=== PATIENT | female | born 1995 | race Caucasian/White ===

== ENCOUNTER 2017-02-23 20:55 | Emergency (ER) | payer BC ==
[~2017-02-23] VITALS: Ht 154.9 cm; Wt 65.0 kg
[2017-02-23 21:03] VITALS: TEMP 37; Ht 154.9 cm; Wt 65.0 kg
--- NOTE | 2017-02-23 21:44 | EMERGENCY ROOM VISIT NOTE ---
History Report prepared by Elva: Jasson Mahmood Under the Supervision of: Dr. Joni Douglas D.O. First contact with patient: 21:37 Chief Complaint: SWELLING TO EXTREMITY Stated Complaint: SWOLLEN LIP History of Present Illness The patient is a 21 year old female who presents to the Emergency Room with complaints of lower lip swelling that began 2 days ago. The patient decided to use salt water to try to relieve the area, but it worsened. She denies any difficulty swallowing or shortness of breath. She does not have any other swelling to any other area. She denies any possibility of being . Source of History: patient Onset: 2 days ago Position: lip (lower) Symptom Intensity: moderate Quality: other (Swelling) Timing: worsening Modifying Factors (Worsening): other (Salt water) Associated Symptoms: No SOB Note: She denies any other symptoms. Review of Systems See HPI for pertinent positives and negatives. A total of ten systems were reviewed and were otherwise negative. Past Medical & Surgical Medical Problems: (1) No Known Active Medical Problems Family History Patient reports no known family medical history. Social History Smoking Status: Never Smoker Smokeless Tobacco Use: No Alcohol Use: none Drug Use: none Marital Status: single Occupation Status: student Physical Exam Vital Signs Date Time Temp Pulse Resp B/P (MAP) Pulse Ox O2 Delivery O2 Flow Rate FiO2 02/23/17 21:03 37.0 90 18 133/78 99 Room Air Physical Exam GENERAL: Awake, alert, well-appearing, in no distress HENT: Normocephalic, atraumatic. Area of swelling to the lower lip on the left side with yellow crusted lesion without any purulence. Oropharynx unremarkable. EYES: Normal conjunctiva. Sclera non-icteric. NECK: Supple. No nuchal rigidity. FROM. No JVD. RESPIRATORY: Clear to auscultation. CARDIAC: Regular rate, normal rhythm. Extremities warm and well perfused. Pulses equal. ABDOMEN: Soft, non-distended. No tenderness to palpation. No rebound or guarding. No masses. MUSCULOSKELETAL: Chest examination reveals no tenderness. The back is symmetrical on inspection without obvious abnormality. There is no CVA tenderness to palpation. No joint edema. LOWER EXTREMITIES: Calves are equal size bilaterally and non-tender. No edema. No discoloration. NEURO: Normal sensorium. No sensory or motor deficits noted. SKIN: No rash or jaundice noted. Medical Decision & Procedures ED Course 2136: The patient was evaluated in room B3B. A complete history and physical exam was performed. 2140: I reevaluated the patient. Discussed results and discharge instructions: She verbalized understanding and agreement. The patient is ready for discharge. Medical Decision Differential diagnoses include herpes stomatitis, viral syndrome, and gingivitis. Medication Reconcilliation Current Medication List: was personally reviewed by me Blood Pressure Screening Patient's blood pressure: Normal blood pressure Blood pressure disposition: Did not require urgent referral Impression Primary Impression: Herpes stomatitis Scribe Attestation The scribe's documentation has been prepared under my direction and personally reviewed by me in its entirety. I confirm that the note above accurately reflects all work, treatment, procedures, and medical decision making performed by me. Departure Information Dispostion Home / Self-Care Prescriptions Acyclovir (Zovirax) 800 Mg Tab 800 MG PO 5 TIMES DAILY for 5 Days, #25 TAB Prov: Joni Douglas, DO 02/23/17 Referrals Lianna Lester D.O. (PCP) Forms HOME CARE DOCUMENTATION FORM, IMPORTANT VISIT INFORMATION, WORK / SCHOOL INSTRUCTIONS Patient Instructions ED Stomatitis Ch, My [facility]
[2017-02-23] MEDS ORDERED: ACYC-251 PO (21:45)
[2017-02-23 22:05] VITALS: BP 118/77; PULSE 67; O2SAT 98
== END 2017-02-23 22:06 | disposition home or self-care (01) ==
LOC: C.EDB 20:56
DX: B00.2 Herpesviral gingivostomatitis and pharyngotonsillitis (principal)

== ENCOUNTER 2017-05-15 02:54 | Inpatient (IN) | payer BC ==
[~2017-05-15] VITALS: Ht 154.9 cm; Wt 62.6 kg
[~2017-05-15 02:54] MED LIST: PRED20TA PO
[2017-05-15] MEDS ORDERED: ONDANSETRON INJ 2 MG/ML 2 ML VIAL IV STA (03:21)
[2017-05-15] MEDS ORDERED: KETOROLAC TROMETHAMINE 30 MG/ML VIAL IV STA (03:21)
[2017-05-15] MEDS ORDERED: OPTIRAY 320 IV PRN (03:30)
[2017-05-15 03:46] LABS: BASO % 0.1 %; BASO ABS # 0.01 K/uL (0-0.2); COMPLETE YES; EOS % 0.3 %; HEMATOCRIT 41.4 % (37-47); IG% 0.2 %; LYMPH % 18.1 %; LYMPH ABS # 2.44 K/uL (1.2-3.4); MEAN CELL VOLUME 86.1 fL (80-100); MEAN CORPUSCULAR HEMOGLOBIN 29.7 pg (25-34); MEAN CORPUSCULAR HGB CONC 34.5 g/dl (32-36); MEAN PLATELET VOLUME 9.2 fL (7.4-10.4); NEUT % 74.3 %; PLATELET COUNT 203 K/uL (130-400); RED BLOOD COUNT 4.81 M/uL (4.2-5.4); WHITE BLOOD COUNT 13.51 K/uL (4.8-10.8)
--- NOTE | 2017-05-15 04:09 | EMERGENCY ROOM VISIT NOTE ---
History First contact with patient: 03:03 Chief Complaint: ABDOMINAL PAIN Stated Complaint: SEVERE PAIN IN STOMACH Nursing Triage Summary: Pt c/o right sided abdominal pain that radiated into her back with associated nausea and dry heaves. History of Present Illness The patient is a 21 year old female who presents to the Emergency Room with complaints of abdominal pain. The patient states that she developed a dull pain in her right abdomen approximately 9 hours ago. She states the pain gradually worsened and she was unable to sleep due to the pain. The patient now describes the pain as sharp and rates the discomfort a 7/10. The pain radiates into her back. She reports some dry heaves, but denies vomiting. Her last menstrual period was 14 days ago. She denies any abnormal vaginal discharge, urinary symptoms, fevers or changes in bowel movements. She denies any history of abdominal issues or abdominal surgeries. The patient additionally reports that she was seen by her primary care provider due to a rash on her abdomen yesterday. She was prescribed prednisone and has been taking this since then. Review of Systems A complete 10 point review of systems was reviewed with the patient with pertinent positives and negatives as per history of present illness. All else were negative. Past Medical/Surgical History Medical Problems: (1) Abdominal pain (2) No Known Active Medical Problems (3) Pancreatitis Family History Patient reports no known family medical history. Social History Smoking Status: Never Smoker Alcohol Use: none Drug Use: none Marital Status: single Occupation Status: student Current/Historical Medications Scheduled Prednisone (Prednisone), 20 MG PO DAILY Physical Exam Vital Signs Date Time Temp Pulse Resp B/P (MAP) Pulse Ox O2 Delivery O2 Flow Rate FiO2 05/15/17 07:42 36.7 63 16 123/70 Room Air 05/15/17 07:11 63 16 123/70 99 05/15/17 04:30 104 20 158/82 96 Room Air 05/15/17 02:58 36.7 117 18 116/68 95 Room Air Physical Exam VITALS: Vitals are noted on the nurse's note and reviewed by myself. Vital signs stable. GENERAL: This is a 21-year-old female, in no acute distress, nondiaphoretic, well-developed well-nourished. SKIN: There is a minimally erythematous, mildly raised fine maculopapular rash over the abdomen and bilateral upper extremities. EARS: External auditory canals clear, tympanic membranes pearly gomez without erythema or effusion bilaterally. EYES: Pupils equal round and reactive to light and accommodation. MOUTH: Mucous membranes moist. NECK: Supple without nuchal rigidity. HEART: Regular rate and rhythm without murmurs gallops or rubs. LUNGS: Clear to auscultation bilaterally without wheezes, rales or rhonchi. ABDOMEN: Positive bowel sounds x 4. Soft, with moderate tenderness in the right lower quadrant. No guarding or rebound tenderness. NEURO: Patient was alert and oriented to person place and time. Medical Decision & Procedures ER Provider Diagnostic Interpretation: CT ABDOMEN & PELVIS WITH CONTRAST: Visualized appendix appears unremarkable. Limited by paucity of fat. Possible fluid layering over the right retroperitoneum. Recommend correlation with pancreatic enzymes. Differential would include duodenitis if there is no evidence for acute pancreatitis. No bowel obstruction. Suspected ovarian follicles. Tampon or other vaginal packing material incidentally noted. Radiologist: Torrey Roldan MD Laboratory Results 05/15/17 03:35 Red Blood Count 4.81, Mean Corpuscular Volume 86.1, Mean Corpuscular Hemoglobin 29.7, Mean Corpuscular Hemoglobin Concent 34.5, Mean Platelet Volume 9.2, Neutrophils (%) (Auto) 74.3, Lymphocytes (%) (Auto) 18.1, Monocytes (%) (Auto) 7.0, Eosinophils (%) (Auto) 0.3, Basophils (%) (Auto) 0.1, Neutrophils # (Auto) 10.05, Lymphocytes # (Auto) 2.44, Monocytes # (Auto) 0.94, Eosinophils # (Auto) 0.04, Basophils # (Auto) 0.01 05/15/17 03:35 Test 05/15/17 03:35 05/15/17 04:25 White Blood Count 13.51 K/uL (4.8-10.8) Red Blood Count 4.81 M/uL (4.2-5.4) Hemoglobin 14.3 g/dL (12.0-16.0) Hematocrit 41.4 % (37-47) Mean Corpuscular Volume 86.1 fL (80-100) Mean Corpuscular Hemoglobin 29.7 pg (25-34) Mean Corpuscular Hemoglobin Concent 34.5 g/dl (32-36) Platelet Count 203 K/uL (130-400) Mean Platelet Volume 9.2 fL (7.4-10.4) Neutrophils (%) (Auto) 74.3 % Lymphocytes (%) (Auto) 18.1 % Monocytes (%) (Auto) 7.0 % Eosinophils (%) (Auto) 0.3 % Basophils (%) (Auto) 0.1 % Neutrophils # (Auto) 10.05 K/uL (1.4-6.5) Lymphocytes # (Auto) 2.44 K/uL (1.2-3.4) Monocytes # (Auto) 0.94 K/uL (0.11-0.59) Eosinophils # (Auto) 0.04 K/uL (0-0.5) Basophils # (Auto) 0.01 K/uL (0-0.2) RDW Standard Deviation 39.0 fL (36.4-46.3) RDW Coefficient of Variation 12.4 % (11.5-14.5) Immature Granulocyte % (Auto) 0.2 % Immature Granulocyte # (Auto) 0.03 K/uL (0.00-0.02) Prothrombin Time 11.4 SECONDS (9.0-12.0) Prothromb Time International Ratio 1.1 (0.9-1.1) Anion Gap 5.0 mmol/L (3-11) Est Creatinine Clear Calc Drug Dose 88.2 ml/min Estimated GFR () 111.1 Estimated GFR (Non- 95.9 BUN/Creatinine Ratio 15.0 (10-20) Calcium Level 9.4 mg/dl (8.5-10.1) Total Bilirubin 0.7 mg/dl (0.2-1) Aspartate Amino Transf (AST/SGOT) 21 U/L (15-37) Alanine Aminotransferase (ALT/SGPT) 38 U/L (12-78) Alkaline Phosphatase 52 U/L (45-117) Total Protein 8.2 gm/dl (6.4-8.2) Albumin 4.0 gm/dl (3.4-5.0) Globulin 4.2 gm/dl (2.5-4.0) Albumin/Globulin Ratio 1.0 (0.9-2) Lipase 4194 U/L (73-393) Urine Color DK YELLOW Urine Appearance CLEAR (CLEAR) Urine pH 5.0 (4.5-7.5) Urine Specific [place] 1.032 (1.000-1.030) Urine Protein TRACE (NEG) Urine Glucose (UA) NEG (NEG) Urine Ketones TRACE (NEG) Urine Occult Blood 1+ (NEG) Urine Nitrite NEG (NEG) Urine Bilirubin NEG (NEG) Urine Urobilinogen NEG (NEG) Urine Leukocyte Esterase NEG (NEG) Urine WBC (Auto) 1-5 /hpf (0-5) Urine RBC (Auto) 0-4 /hpf (0-4) Urine Hyaline Casts (Auto) 1-5 /lpf (0-5) Urine Epithelial Cells (Auto) >30 /lpf (0-5) Urine Bacteria (Auto) NEG (NEG) Urine Test NEG (NEG) Medications Administered Medications (Trade) Dose Ordered Sig/Guera Route Start Time Stop Time Status Last Admin Dose Admin Ondansetron HCl (Zofran Inj) 4 mg NOW STAT IV 05/15/17 03:21 05/15/17 03:23 DC 05/15/17 03:42 4 MG Ketorolac Tromethamine (Toradol Inj) 30 mg NOW STAT IV 05/15/17 03:21 05/15/17 03:23 DC 05/15/17 03:43 30 MG ED Course The patient was evaluated as above. Labs were drawn and IV access was obtained. Patient was medicated with 15 mg Toradol IV. Patient was reevaluated and was having worsening pain. She was given a dose of morphine. CT of the abdomen and pelvis was performed and read by radiology as above. Patient was reevaluated and findings were discussed. She is agreeable to admission. Case was discussed with the [facility], Dr. Rodríguez. They agreed to evaluate the patient for admission. Medical Decision Differential diagnosis includes pancreatitis, cholecystitis, gastroenteritis, appendicitis, bowel obstruction, colitis, among others. The patient is a 21-year-old female who presents today complaining of abdominal pain and nausea. Labs revealed mild leukocytosis which may be secondary to patient's recent steroid use. Lipase was found to be elevated and CT did show evidence of pancreatitis. The patient does not drink alcohol. I am unsure of the etiology of the pancreatitis. Her pain was well controlled in the emergency department, but she did require a few doses of pain medication and will likely require more. She will be [facility] the [facility]. The patient's case was reviewed with Dr. Yuan, ED attending physician, who agreed with my assessment and treatment plan. Medication Reconcilliation Current Medication List: was personally reviewed by me Blood Pressure Screening Patient's blood pressure: Normal blood pressure Impression Primary Impression: Pancreatitis Departure Information Referrals Lianna Lester D.O. (PCP) Patient Instructions My [facility]
[2017-05-15 04:10] LABS: CALCIUM 9.4 mg/dl (8.5-10.1); CREATININE 0.87 mg/dl (0.60-1.20); POTASSIUM 3.6 mmol/L (3.5-5.1)
[2017-05-15 04:41] LABS: URINE APPEARANCE CLEAR (CLEAR); URINE BILIRUBIN NEG (NEG); URINE COLOR DK YELLOW; URINE EPITHELIAL CELL AUTO >30 /lpf (0-5); URINE NITRITE NEG (NEG); URINE SPECIFIC GRAVITY 1.032 (1.000-1.030); UROBILINOGEN NEG (NEG); ZZUR CULT IF INDIC CLEAN CATCH NO
[2017-05-15 05:09] LABS: MANUAL MICROSCOPIC REQUIRED? NO; REVIEW REQ? NO
[2017-05-15] MEDS ORDERED: MoRPHine SULFATE 4 MG/ML 1 ML CARP\\VIAL IV PRN (07:30)
[2017-05-15] MEDS ORDERED: ONDANSETRON INJ 2 MG/ML 2 ML VIAL IV PRN (07:30)
[2017-05-15] MEDS ORDERED: MoRPHine SULFATE 2 MG/ML CARP IV PRN (07:30)
[2017-05-15 07:42] VITALS: BP 123/70; PULSE 63; TEMP 36.7; Ht 154.9 cm; Wt 62.6 kg
[2017-05-15 08:02] LABS: INR 1.1 (0.9-1.1); PROTHROMBIN TIME (PATIENT) 11.4 SECONDS (9.0-12.0)
[2017-05-15 08:41] VITALS: BP 118/71; PULSE 72; TEMP 36.6; O2SAT 93
[2017-05-15] MEDS: SODIUM CHLORIDE 0.9% 1000ML 1,000 ML IV SCH ×4 (09:08→23:36)
--- NOTE | 2017-05-15 09:08 | History and Physical ---
History & Physical Date & Time of Service: May 15, 2017 at 08:38 Chief Complaint: Severe Pain In Stomach Primary Care Physician: Lianna Lester D.O. History of Present Illness Source: patient, parent Ms. Fenton is a 21 year old woman here for increasing abdominal pain starting last night with vomiting and dry heaves until about 0200 today. Pain radiated from abdomen to back. She also developed a rash 05/10 for which she saw her pcp yesterday and took prednisone x1 dose of 5. The rash is mostly around her trunk but extends to her back. It does not itch or burn. She recently started taking saw palmetto for the past two weeks but quit when the rash started. She also takes a multivitamin. She has no significant past medical history Family History Patient reports no known family medical history. No significant family medical history Social History Smoking Status: Never Smoker Smokeless Tobacco Use: No Alcohol Use: none Drug Use: none Marital Status: single Occupational Status: student Immunizations History of Influenza Vaccine: Yes History of Tetanus Vaccine?: Yes History of Pneumococcal: No Multi-Drug Resistant Organisms History of MDRO: No Allergies Coded Allergies: No Known Allergies (Unverified , 05/15/17) Home Medications Scheduled Prednisone (Prednisone), 20 MG PO DAILY Review of Systems Constitutional: No fever, No chills Respiratory: No cough, No sputum, No shortness of breath Cardiovascular: No chest pain Abdomen: + pain, + nausea, + vomiting, No diarrhea, No constipation Genitourinary - Female: No dysuria Endocrine: No fatigue Integumentary: + rash, No itch Physical Exam Vital Signs Date Time Temp Pulse Resp B/P (MAP) Pulse Ox O2 Delivery O2 Flow Rate FiO2 05/15/17 07:42 36.7 63 16 123/70 Room Air 05/15/17 07:11 63 16 123/70 99 05/15/17 04:30 104 20 158/82 96 Room Air 05/15/17 02:58 36.7 117 18 116/68 95 Room Air General: no distress Eyes: normal inspection, PERLL Respiratory: chest non tender, clear to auscultation, normal breath sounds, no respiratory distress, no accessory muscle use Cardiac: regular rate and rhythm, no rub or gallop, no murmur, no edema, no jvd GI/: active bowel sounds, upper medial abdomen tenderness, soft, non distended Extremities: normal range of motion, normal strength, non tender Neuro/Psych: alert and oriented x 3, normal mood and affect Skin: normal color, dry, small papular rash around abdomen and extending around to her back Diagnostics Laboratory Results Results Past 24 Hours Test 05/15/17 03:35 05/15/17 04:25 Range/Units White Blood Count 13.51 4.8-10.8 K/uL Red Blood Count 4.81 4.2-5.4 M/uL Hemoglobin 14.3 12.0-16.0 g/dL Hematocrit 41.4 37-47 % Mean Corpuscular Volume 86.1 80-100 fL Mean Corpuscular Hemoglobin 29.7 25-34 pg Mean Corpuscular Hemoglobin Concent 34.5 32-36 g/dl Platelet Count 203 130-400 K/uL Mean Platelet Volume 9.2 7.4-10.4 fL Neutrophils (%) (Auto) 74.3 % Lymphocytes (%) (Auto) 18.1 % Monocytes (%) (Auto) 7.0 % Eosinophils (%) (Auto) 0.3 % Basophils (%) (Auto) 0.1 % Neutrophils # (Auto) 10.05 1.4-6.5 K/uL Lymphocytes # (Auto) 2.44 1.2-3.4 K/uL Monocytes # (Auto) 0.94 0.11-0.59 K/uL Eosinophils # (Auto) 0.04 0-0.5 K/uL Basophils # (Auto) 0.01 0-0.2 K/uL RDW Standard Deviation 39.0 36.4-46.3 fL RDW Coefficient of Variation 12.4 11.5-14.5 % Immature Granulocyte % (Auto) 0.2 % Immature Granulocyte # (Auto) 0.03 0.00-0.02 K/uL Prothrombin Time 11.4 9.0-12.0 SECONDS Prothromb Time International Ratio 1.1 0.9-1.1 Sodium Level 137 136-145 mmol/L Potassium Level 3.6 3.5-5.1 mmol/L Chloride Level 105 98-107 mmol/L Carbon Dioxide Level 27 21-32 mmol/L Anion Gap 5.0 3-11 mmol/L Blood Urea Nitrogen 13 7-18 mg/dl Creatinine 0.87 0.60-1.20 mg/dl Est Creatinine Clear Calc Drug Dose 88.2 ml/min Estimated GFR () 111.1 Estimated GFR (Non- 95.9 BUN/Creatinine Ratio 15.0 10-20 Random Glucose 125 70-99 mg/dl Calcium Level 9.4 8.5-10.1 mg/dl Total Bilirubin 0.7 0.2-1 mg/dl Aspartate Amino Transf (AST/SGOT) 21 15-37 U/L Alanine Aminotransferase (ALT/SGPT) 38 12-78 U/L Alkaline Phosphatase 52 45-117 U/L Total Protein 8.2 6.4-8.2 gm/dl Albumin 4.0 3.4-5.0 gm/dl Globulin 4.2 2.5-4.0 gm/dl Albumin/Globulin Ratio 1.0 0.9-2 Lipase 4194 73-393 U/L Urine Color DK YELLOW Urine Appearance CLEAR CLEAR Urine pH 5.0 4.5-7.5 Urine Specific [place] 1.032 1.000-1.030 Urine Protein TRACE NEG Urine Glucose (UA) NEG NEG Urine Ketones TRACE NEG Urine Occult Blood 1+ NEG Urine Nitrite NEG NEG Urine Bilirubin NEG NEG Urine Urobilinogen NEG NEG Urine Leukocyte Esterase NEG NEG Urine WBC (Auto) 1-5 0-5 /hpf Urine RBC (Auto) 0-4 0-4 /hpf Urine Hyaline Casts (Auto) 1-5 0-5 /lpf Urine Epithelial Cells (Auto) >30 0-5 /lpf Urine Bacteria (Auto) NEG NEG Urine Test NEG NEG Diagnostic Radiology CT Abdomen Impression Assessment and Plan Ms. Fenton is a 21 year old woman here for pancreatitis. She has no significant past medical history Pancreatitis - admit med surg - fluids, bowel rest, pain control - US gallbladder - lipase, cbc, prp, lipid panel am Rash - will hold off on further prednisone at this time as she has only had one dose and the rash is not painful or itchy and she has no other symptoms of allergic reaction Level of Care Med/Surg Advanced Directives Existing Living Will: No Existing Power of Business Objects: No Resuscitation Status FULL RESUSCITATION VTE Prophylaxis VTE Risk Assessment Done? Y/N: Yes Risk Level: Low Given or contraindicated: Enoxaparin (Lovenox)SQ
[2017-05-15 09:44] VITALS: O2SAT 99
[2017-05-15] MEDS: ENOXAPARIN 40 MG/0.4 ML SYR SQ SCH (10:02)
--- NOTE | 2017-05-15 11:42 | DIAGNOSTIC IMAGING REPORT ---
ABDOMINAL ULTRASOUND, RIGHT UPPER QUADRANT HISTORY: Right lower quadrant pain. Nausea. pancreatitis. COMPARISON: Abdomen and pelvis CT 05/15/2017. FINDINGS: Pancreas: Normal echotexture. No peripancreatic fluid collections identified. Liver: Unremarkable. Gallbladder: No gallbladder wall thickening. No gallstones. CBD: 4 mm. Right kidney: No hydronephrosis. IMPRESSION: No significant abnormality identified within the right upper quadrant. The pancreas demonstrates a normal echotexture at this time. Electronically signed by: Pete Ontiveros M.D. 05/15/2017 11:40 AM Dictated Date/Time: 05/15/2017 11:38 AM
[2017-05-15 15:22] VITALS: BP 100/64; PULSE 66; TEMP 36.6; O2SAT 96
[2017-05-15 16:00] VITALS: O2SAT 96
[2017-05-16] VITALS (7 sets, daily range): BP systolic 97–123; BP diastolic 58–74; PULSE 63–80; TEMP 36.8–38.1; O2SAT 96–99
[2017-05-16] MEDS: SODIUM CHLORIDE 0.9% 1000ML 1,000 ML IV SCH ×3 (04:32→19:44)
[2017-05-16 07:23] LABS: BASO % 0.2 %; BASO ABS # 0.02 K/uL (0-0.2); COMPLETE YES; EOS % 1.5 %; HEMATOCRIT 34.3 % (37-47); IG% 0.2 %; LYMPH ABS # 2.46 K/uL (1.2-3.4); MEAN CELL VOLUME 87.5 fL (80-100); MEAN CORPUSCULAR HEMOGLOBIN 29.8 pg (25-34); MEAN CORPUSCULAR HGB CONC 34.1 g/dl (32-36); MEAN PLATELET VOLUME 9.5 fL (7.4-10.4); MONO % 7.5 %; NEUT % 65.6 %; PLATELET COUNT 153 K/uL (130-400); RED BLOOD COUNT 3.92 M/uL (4.2-5.4); WHITE BLOOD COUNT 9.83 K/uL (4.8-10.8)
[2017-05-16 07:34] LABS: ALKALINE PHOSPHATASE 38 U/L (45-117); ALT/SGPT 32 U/L (12-78); AST/SGOT 18 U/L (15-37); BLOOD UREA NITROGEN 11 mg/dl (7-18); BUN/CREATININE RATIO 19.6 (10-20); CALCIUM 7.8 mg/dl (8.5-10.1); CARBON DIOXIDE 20 mmol/L (21-32); CHLORIDE 111 mmol/L (98-107); CHOLESTEROL 115 mg/dl (0-200); CHOLESTEROL/HDL RATIO 3.8; CREATININE 0.56 mg/dl (0.60-1.20); GLUCOSE 67 mg/dl (70-99); HDL CHOLESTEROL 30 mg/dl; LDL CHOLESTEROL CALCULATED 66 mg/dl; POTASSIUM 3.7 mmol/L (3.5-5.1); SODIUM 140 mmol/L (136-145); TRIGLYCERIDES 94 mg/dl (0-150); VERY LOW DENSITY LIPOPROT CALC 19 mg/dl
--- NOTE | 2017-05-16 09:37 | Hospitalist Progress Note ---
Hospitalist Progress Note Date of Service May 16, 2017. Subjective Pt evaluation today including: conversation w/ patient, conversation w/ family , physical exam, chart review, lab review, review of studies, review of inpatient medication list Voiding: no voiding problems Ms. Fenton is feeling better this morning, no nausea or vomiting. She continues to have upper and lower right quadrant tenderness. Her rash on her abdomen is improving, does not itch or hurt ROS Constitutional: no chills, aches, sweats or fever Respiratory: no sob,cough, sputum, or wheezing Cardiac: no chest pain, palpitations, edema, orthopnea or lightheadedness GI: see HPI : no dysuria or hesitancy Extremities: no joint pain or weakness Skin: see HPI Objective Vital Signs Date Time Temp Pulse Resp B/P (MAP) Pulse Ox O2 Delivery O2 Flow Rate FiO2 05/16/17 08:51 99 Room Air 05/16/17 07:52 37.1 80 18 105/62 (76) 98 Room Air 05/16/17 00:02 36.8 67 20 106/70 (82) 97 Room Air 05/16/17 00:00 96 Room Air 05/15/17 16:00 96 Room Air 05/15/17 15:22 36.6 66 16 100/64 (76) 96 Room Air 05/15/17 09:44 99 Room Air Physical Exam Notes: General: no distress Eyes: normal inspection, PERLL Respiratory: chest non tender, clear to auscultation, normal breath sounds, no respiratory distress, no accessory muscle use Cardiac: regular rate and rhythm, no rub or gallop, no murmur, no edema, no jvd GI/: active bowel sounds, tender upper and lower right quadrant, soft, non distended Extremities: normal range of motion, normal strength, non tender Neuro/Psych: alert and oriented x 3, normal mood and affect Skin: normal color, dry Laboratory Results Last 24 Hours Test 05/16/17 06:28 White Blood Count 9.83 K/uL Red Blood Count 3.92 M/uL Hemoglobin 11.7 g/dL Hematocrit 34.3 % Mean Corpuscular Volume 87.5 fL Mean Corpuscular Hemoglobin 29.8 pg Mean Corpuscular Hemoglobin Concent 34.1 g/dl Platelet Count 153 K/uL Mean Platelet Volume 9.5 fL Neutrophils (%) (Auto) 65.6 % Lymphocytes (%) (Auto) 25.0 % Monocytes (%) (Auto) 7.5 % Eosinophils (%) (Auto) 1.5 % Basophils (%) (Auto) 0.2 % Neutrophils # (Auto) 6.44 K/uL Lymphocytes # (Auto) 2.46 K/uL Monocytes # (Auto) 0.74 K/uL Eosinophils # (Auto) 0.15 K/uL Basophils # (Auto) 0.02 K/uL RDW Standard Deviation 40.1 fL RDW Coefficient of Variation 12.6 % Immature Granulocyte % (Auto) 0.2 % Immature Granulocyte # (Auto) 0.02 K/uL Sodium Level 140 mmol/L Potassium Level 3.7 mmol/L Chloride Level 111 mmol/L Carbon Dioxide Level 20 mmol/L Anion Gap 9.0 mmol/L Blood Urea Nitrogen 11 mg/dl Creatinine 0.56 mg/dl Est Creatinine Clear Calc Drug Dose 135.8 ml/min Estimated GFR () > 150.0 Estimated GFR (Non- 134.2 BUN/Creatinine Ratio 19.6 Random Glucose 67 mg/dl Calcium Level 7.8 mg/dl Total Bilirubin 1.1 mg/dl Aspartate Amino Transf (AST/SGOT) 18 U/L Alanine Aminotransferase (ALT/SGPT) 32 U/L Alkaline Phosphatase 38 U/L Total Protein 5.7 gm/dl Albumin 2.8 gm/dl Globulin 2.9 gm/dl Albumin/Globulin Ratio 1.0 Triglycerides Level 94 mg/dl Cholesterol Level 115 mg/dl HDL Cholesterol 30 mg/dl LDL Cholesterol, Calculated 66 mg/dl VLDL Cholesterol, Calculated 19 mg/dl Cholesterol/HDL Ratio 3.8 Lipase 1646 U/L Assessment and Plan Ms. Fenton is a 21 year old woman here for pancreatitis. She has no significant past medical history Pancreatitis - reduced IVF from 200 ml/hr to 100 - clear liquid diet - US gallbladder negative for acute process - lipase trending down - lipid panel wnl Rash - will hold off on further prednisone at this time as she has only had one dose and the rash is not painful or itchy and she has no other symptoms of allergic reaction - rash is improving today so no intervention necessary Full code DVT prophylaxis - enoxaparin
[2017-05-16] MEDS: ENOXAPARIN 40 MG/0.4 ML SYR SQ SCH (09:38)
[2017-05-17 00:23] VITALS: BP 106/60; PULSE 69; TEMP 37.1; O2SAT 96
[2017-05-17] MEDS: SODIUM CHLORIDE 0.9% 1000ML 1,000 ML IV SCH ×2 (05:37→15:57)
[2017-05-17 06:24] LABS: BASO % 0.3 %; BASO ABS # 0.02 K/uL (0-0.2); COMPLETE YES; EOS % 2.3 %; HEMATOCRIT 35.9 % (37-47); IG% 0.1 %; LYMPH % 36.7 %; LYMPH ABS # 2.85 K/uL (1.2-3.4); MEAN CELL VOLUME 86.7 fL (80-100); MEAN CORPUSCULAR HEMOGLOBIN 28.7 pg (25-34); MEAN CORPUSCULAR HGB CONC 33.1 g/dl (32-36); MEAN PLATELET VOLUME 9.4 fL (7.4-10.4); NEUT % 51.6 %; PLATELET COUNT 166 K/uL (130-400); RED BLOOD COUNT 4.14 M/uL (4.2-5.4); WHITE BLOOD COUNT 7.77 K/uL (4.8-10.8)
[2017-05-17 06:54] LABS: ALB/GLOB RATIO 0.9 (0.9-2); ALKALINE PHOSPHATASE 44 U/L (45-117); ALT/SGPT 30 U/L (12-78); AST/SGOT 18 U/L (15-37); BLOOD UREA NITROGEN 5 mg/dl (7-18); BUN/CREATININE RATIO 8.1 (10-20); CALCIUM 8.3 mg/dl (8.5-10.1); CARBON DIOXIDE 27 mmol/L (21-32); CHLORIDE 106 mmol/L (98-107); CREATININE 0.61 mg/dl (0.60-1.20); GLUCOSE 80 mg/dl (70-99); POTASSIUM 3.5 mmol/L (3.5-5.1); SODIUM 140 mmol/L (136-145)
--- NOTE | 2017-05-17 08:10 | DIAGNOSTIC IMAGING REPORT ---
ABDOMEN AND PELVIS CT WITH IV AND ORAL CONTRAST CT DOSE: 306.27 mGy.cm HISTORY: Acute right lower quadrant abdominal pain with nausea RLQ PAIN, NAUSEA TECHNIQUE: Multiaxial CT images of the abdomen and pelvis were performed following the use of intravenous and oral contrast. A dose lowering technique was utilized adhering to the principles of ALARA. COMPARISON STUDY: None. FINDINGS: Imaged lung bases are clear. No pneumoperitoneum or pneumatosis. Imaged inferior cardiac chambers are unremarkable. The liver, gallbladder, spleen and adrenal glands are within normal limits. There is mild fluid within the anterior pararenal space surrounding the pancreas and duodenum. No significant intraparenchymal edema of the pancreas. No biliary or pancreatic ductal dilation. Kidneys, ureters and urinary bladder are unremarkable. Tampon in the vagina is incidentally noted. Follicular changes of the ovaries are present. Uterus is unremarkable. The aorta is normal in course and caliber. No bulky adenopathy. No bowel obstruction or bowel wall thickening. The proximal appendix is contrast opacified and appears normal as seen on image 293 of series 3. The distal appendiceal tip however is not well seen. No secondary signs of acute appendicitis. Soft tissues are unremarkable. Bones appear intact. IMPRESSION: 1. Mild amount of fluid and edema within the anterior pararenal space surrounding the pancreas and duodenum is suspicious for mild acute pancreatitis. Correlate with lipase level. 2. The appendix is not seen in its entirety, however the visualized portions appear unremarkable without secondary signs of acute appendicitis. 3. No bowel obstruction. Electronically signed by: Jayme Pimentel M.D. 05/15/2017 7:42 AM Dictated Date/Time: 05/15/2017 7:36 AM
[2017-05-17 08:13] VITALS: O2SAT 98
[2017-05-17 08:22] VITALS: BP 114/70; PULSE 70; TEMP 37; O2SAT 97
[2017-05-17] MEDS: ENOXAPARIN 40 MG/0.4 ML SYR SQ SCH (08:46)
[2017-05-17] MEDS ORDERED: OXYCODONE/ACETAMINOPHEN 5-325 TAB PO PRN (09:45)
--- NOTE | 2017-05-17 09:46 | Progress Note ---
Subjective Date of Service: May 17, 2017. Subjective Pt evaluation today including: conversation w/ patient, conversation w/ family (mother at the bedside), physical exam, lab review, review of inpatient medication list Pain: mild to moderate PO Intake: tolerating diet Voiding: no voiding problems no increased pain with eating, no nausea or vomiting required some morphine last night lipase still elevated at 1400, BMP and LFT normal paper twister tender on exam d/w patient and mother, would like to keep one more day since paper twister tender on exam Problem List Medical Problems: (1) Herpes stomatitis Status: Acute Review of Systems Abdomen: + pain (epigastric) All Other Systems: Reviewed and Negative Medications Current Inpatient Medications Medications (Trade) Dose Ordered Sig/Guera Route Start Time Stop Time Status Last Admin Dose Admin Ioversol (Optiray 320) 100 ml UD PRN IV 05/15/17 03:30 05/19/17 03:29 Enoxaparin Sodium (Lovenox Inj) 40 mg Q24H SQ 05/15/17 09:00 06/14/17 08:59 05/16/17 09:38 40 MG Ondansetron HCl (Zofran Inj) 4 mg Q6H PRN IV 05/15/17 07:30 06/14/17 07:29 Sodium Chloride 1,000 ml @ 100 mls/hr Q10H IV 05/15/17 09:00 06/14/17 08:59 05/17/17 05:37 100 MLS/HR Morphine Sulfate (MoRPHine SULFATE INJ) 2 mg Q4 PRN IV 05/15/17 07:30 05/29/17 07:29 05/16/17 18:19 2 MG Morphine Sulfate (MoRPHine SULFATE INJ) 4 mg Q4 PRN IV 05/15/17 07:30 05/29/17 07:29 Objective Vital Signs Date Time Temp Pulse Resp B/P (MAP) Pulse Ox O2 Delivery O2 Flow Rate FiO2 05/17/17 08:22 37.0 70 16 114/70 (85) 97 Room Air 05/17/17 08:13 98 Room Air 05/17/17 00:23 37.1 69 20 106/60 (75) 96 Room Air 05/17/17 00:00 Room Air 05/16/17 16:00 37.2 63 20 123/74 (90) 98 Room Air 05/16/17 16:00 96 Room Air 05/16/17 15:45 37.3 05/16/17 15:20 38.1 78 18 113/71 (85) 97 Room Air Physical Exam General Appearance: WD/WN, no apparent distress Eyes: normal inspection, EOMI, sclerae normal ENT: normal ENT inspection, hearing grossly normal, pharynx normal Neck: supple, no adenopathy, no JVD, trachea midline Respiratory/Chest: chest non-tender, lungs clear, normal breath sounds, no respiratory distress, no accessory muscle use Cardiovascular: regular rate, rhythm, no edema, no gallop, no JVD, no murmur Abdomen: normal bowel sounds, soft, no organomegaly, + tenderness (epigastric) Extremities: normal range of motion, non-tender, normal inspection, no pedal edema, no calf tenderness, pelvis stable 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, no motor/sensory deficits, alert, normal mood/affect, oriented x 3 Skin: normal color, warm/dry, no rash Laboratory Results Last 24 Hours Test 05/17/17 05:29 White Blood Count 7.77 K/uL Red Blood Count 4.14 M/uL Hemoglobin 11.9 g/dL Hematocrit 35.9 % Mean Corpuscular Volume 86.7 fL Mean Corpuscular Hemoglobin 28.7 pg Mean Corpuscular Hemoglobin Concent 33.1 g/dl Platelet Count 166 K/uL Mean Platelet Volume 9.4 fL Neutrophils (%) (Auto) 51.6 % Lymphocytes (%) (Auto) 36.7 % Monocytes (%) (Auto) 9.0 % Eosinophils (%) (Auto) 2.3 % Basophils (%) (Auto) 0.3 % Neutrophils # (Auto) 4.01 K/uL Lymphocytes # (Auto) 2.85 K/uL Monocytes # (Auto) 0.70 K/uL Eosinophils # (Auto) 0.18 K/uL Basophils # (Auto) 0.02 K/uL RDW Standard Deviation 39.8 fL RDW Coefficient of Variation 12.4 % Immature Granulocyte % (Auto) 0.1 % Immature Granulocyte # (Auto) 0.01 K/uL Sodium Level 140 mmol/L Potassium Level 3.5 mmol/L Chloride Level 106 mmol/L Carbon Dioxide Level 27 mmol/L Anion Gap 7.0 mmol/L Blood Urea Nitrogen 5 mg/dl Creatinine 0.61 mg/dl Est Creatinine Clear Calc Drug Dose 124.7 ml/min Estimated GFR () > 150.0 Estimated GFR (Non- 130.5 BUN/Creatinine Ratio 8.1 Random Glucose 80 mg/dl Calcium Level 8.3 mg/dl Total Bilirubin 1.0 mg/dl Aspartate Amino Transf (AST/SGOT) 18 U/L Alanine Aminotransferase (ALT/SGPT) 30 U/L Alkaline Phosphatase 44 U/L Total Protein 6.1 gm/dl Albumin 2.9 gm/dl Globulin 3.2 gm/dl Albumin/Globulin Ratio 0.9 Lipase 1453 U/L Assessment and Plan - Acute pancreatitis: unclear etiology, does not drink, no gall stones on US, normal triglyceride, no medications could be acute viral illness with concurrent viral exanthem on abdomen advance diet, tolerating low fat, low fiber and no change in pain after eating, no nausea continue fluids at 100cc/hr lipase still elevated at 1400 from 1600 yesterday, paper twister tender on exam will repeat labs tomorrow, reassess pain, hopeful for discharge by tomorrow morning
[2017-05-17 15:51] VITALS: BP 113/69; PULSE 64; TEMP 36.4; O2SAT 95
[2017-05-17 16:00] VITALS: O2SAT 95
[2017-05-18 00:24] VITALS: BP 123/76; PULSE 75; TEMP 36.9; O2SAT 98
[2017-05-18] MEDS: SODIUM CHLORIDE 0.9% 1000ML 1,000 ML IV SCH (01:09)
[2017-05-18 07:32] LABS: BASO % 0.2 %; BASO ABS # 0.01 K/uL (0-0.2); COMPLETE YES; EOS % 3.8 %; IG% 0.2 %; LYMPH ABS # 2.67 K/uL (1.2-3.4); MEAN CELL VOLUME 86.4 fL (80-100); MEAN CORPUSCULAR HEMOGLOBIN 28.7 pg (25-34); MEAN CORPUSCULAR HGB CONC 33.2 g/dl (32-36); MEAN PLATELET VOLUME 9.5 fL (7.4-10.4); MONO % 8.1 %; NEUT % 39.7 %; PLATELET COUNT 163 K/uL (130-400); RED BLOOD COUNT 4.28 M/uL (4.2-5.4); WHITE BLOOD COUNT 5.56 K/uL (4.8-10.8)
[2017-05-18 08:06] VITALS: BP 112/71; PULSE 65; TEMP 36.8; O2SAT 97
[2017-05-18 08:07] LABS: BUN/CREATININE RATIO 12.8 (10-20); CALCIUM 8.6 mg/dl (8.5-10.1); CREATININE 0.63 mg/dl (0.60-1.20); POTASSIUM 3.9 mmol/L (3.5-5.1)
[2017-05-18] MEDS: ENOXAPARIN 40 MG/0.4 ML SYR SQ SCH (09:00)
[2017-05-18] MEDS ORDERED: OXYC-57 PO (09:04)
[2017-05-18 09:05] VITALS: O2SAT 98
--- NOTE | 2017-05-18 09:07 | Discharge Instructions ---
Discharge Instructions Date of Service May 18, 2017. Admission Reason for Admission: Abdominal Pain, Pancreatitis Discharge Discharge Diagnosis / Problem: Acute pancreatitis, idiopathic Discharge Goals Goal(s): Decrease discomfort, Improve function Activity Recommendations Activity Limitations: resume your previous activity Lifting Limitations: none Exercise/Sports Limitations: as tolerated Shower/Bathe: no limitations Driving or Machine Use: no limitations . Instructions / Follow-Up Instructions / Follow-Up Medications: - PERCOCET: use as needed for pain Acute pancreatitis: as we discussed, no clear cause of the pancreatitis, thus we are calling it idiopathic normal gall bladder, no stones no alcohol use normal triglycerides pain should resolve in next several days, use Percocet as needed stay well hydrated, drink at least 2 liters of water a day over the weekend FOLLOW UP - Dr. Lester next week, call her office to schedule appointment Current Hospital Diet Patient's current hospital diet: Low Fat Diet, Low Fiber Diet Discharge Diet Recommended Diet: Regular Diet Pending Studies Studies pending at discharge: no Laboratory Results Lipid Panel Test 05/16/17 06:28 Range/Units Triglycerides Level 94 0-150 mg/dl Cholesterol Level 115 0-200 mg/dl HDL Cholesterol 30 mg/dl Cholesterol/HDL Ratio 3.8 LDL Cholesterol, Calculated 66 mg/dl Medical Emergencies . Who to Call and When: Medical Emergencies: If at any time you feel your situation is an emergency, please call 911 immediately. . Non-Emergent Contact Non-Emergency issues call your: Primary Care Provider Call Non-Emergent contact if: your pain is worsening, you have any medication questions . . "Provider Documentation" section prepared by Diaz Rodríguez. . VTE Core Measure Inpt VTE Proph given/why not?: Enoxaparin (Lovenox)[facility] Drug Monitoring Program Search Results: no issues identified
[2017-05-18 10:12] VITALS: BP 112/71; PULSE 65; TEMP 36.8; O2SAT 98
--- NOTE | 2017-05-19 07:20 | Discharge Summary ---
Discharge Summary Date of Service May 18, 2017. Discharge Summary Admission Date: May 15, 2017 at 07:30 Discharge Date: May 18, 2017 Discharge Disposition: Home Principal Diagnosis: Acute pancreatitis, idiopathic Immunizations: Have You Had Influenza Vaccine: Yes History of Tetanus Vaccine?: Yes History of Pneumococcal: No Procedures: none Consultations: none Medication Reconciliation New Medications: Oxycodone/Acetaminophen 5MG/325MG (Percocet 5MG/325MG) Tab 1 TAB PO Q4H PRN for Pain, #10 TAB 0 Refills PAIN Discontinued Medications: Prednisone (Prednisone) 20 Mg Tab 20 MG PO DAILY for 5 Days, #5 TAB Discharge Exam Patient feeling well the morning of discharge, no new issues. Abdominal pain nearly gone. Eating well and drinking well, no nausea or vomiting. Had a BM. Discussed discharge with patient and her mother at the bedside, all questions answered. Review of Systems: Constitutional: No fever, No chills, No sweats, No weight loss, No weakness , No fatigue, No problem reported Eyes: No worsening of vision, No eye pain, No redness, No discharge, No diplopia, No problem reported ENT: No hearing loss, No unusual epistaxis, No nasal symptoms, No sore throat, No tinnitus, No dental problems, No trouble swallowing, No problem reported Respiratory: No cough, No sputum, No wheezing, No shortness of breath, No dyspnea on exertion, No dyspnea at rest, No hemoptysis, No problem reported Cardiovascular: No chest pain, No orthopnea, No PND, No edema, No claudication, No palpitations, No problem reported Abdomen: + pain (epigastric, minimal pain), No nausea, No vomiting, No diarrhea, No constipation, No GI bleeding, No problem reported Musculoskeletal: No joint pain, No muscle pain, No swelling, No calf pain, No problem reported Genitourinary - Female: No dysuria, No urinary frequency, No urinary urgency , No urinary incontinence, No urinary retention, No hematuria Neurologic: No memory loss, No paralysis, No weakness, No numbness/tingling , No vertigo, No balance problems, No problem reported Psychiatric: No depression symptoms, No anhedonism, No anxiety, No insomnia , No substance abuse, No problem reported Endocrine: No fatigue, No excessive thirst, No excessive urination, No problem reported Hematologic / Lymphatic: No abnormal bleeding/bruising, No clotting problems , No swollen lymph nodes, No night sweats, No problem reported Integumentary: No rash, No itch, No new/changing skin lesions, No color change, No bleeding, No problem reported Physical Exam: General Appearance: WD/WN, no apparent distress Eyes: normal inspection, EOMI, sclerae normal ENT: normal ENT inspection, hearing grossly normal, pharynx normal Neck: supple, no adenopathy, no JVD, trachea midline Respiratory/Chest: chest non-tender, lungs clear, normal breath sounds, no respiratory distress, no accessory muscle use Cardiovascular: regular rate, rhythm, no edema, no gallop, no JVD, no murmur , normal peripheral pulses Abdomen / GI: normal bowel sounds, non tender, soft, no organomegaly Extremities: normal inspection, no calf tenderness, normal capillary refill , no pedal edema, normal range of motion, pelvis stable Neurologic/Psychiatric: veterinary nurse II-XII nml as tested, no motor/sensory deficits , alert, normal mood/affect, normal reflexes, oriented x 3 Skin: normal color, warm/dry, no rash Lymphatic: no adenopathy Hospital Course - Acute pancreatitis: unclear etiology, does not drink, no gall stones on US, normal triglyceride, no medications could be acute viral illness with concurrent viral exanthem on abdomen advanced to regular diet, tolerating well and no change in pain after eating , no nausea continued fluids at 100cc/hr while admitted lipase slowly dropped to 1100 after three days, minimal pain d/c to home, follow up with PCP in one week told to drink plenty of water this weekend and get rest, otherwise, no restrictions Total Time Spent: Greater than 30 minutes This includes examination of the patient, discharge planning, medication reconciliation, and communication with other providers. Discharge Instructions Please refer to the electronic Patient Visit Report (Discharge Instructions) for additional information. Follow-Up Dr. Lester in one week Additional Copies To Lianna Lester D.O.
== END 2017-05-18 10:40 | disposition home or self-care (01) | DRG 440 ==
LOC: C.EDB 02:55 → C.MS2W 07:30 → ENRESERV 07:56
PROVIDERS: ADMIT Internal Medicine; ATTEND Internal Medicine
DX: K85.00 Idiopathic acute pancreatitis without necrosis or infection (principal); R21 Rash and other nonspecific skin eruption; B34.9 Viral infection, unspecified

== ENCOUNTER → 2017-09-10 | Outpatient (CLI) | payer OTHER ==
[~2017-09-10] MED LIST changes: +OXYC-57 PO; -PRED20TA PO
== END | disposition home or self-care (01) ==
LOC: C.PAPS 11:19
PROVIDERS: ATTEND Family Medicine
DX: Z12.72 Encounter for screening for malignant neoplasm of vagina (principal)

== ENCOUNTER → 2017-09-10 | Outpatient (CLI) | payer OTHER | END | disposition home or self-care (01) | LOC: C.LABSPEC 10:49 | PROVIDERS: ATTEND Family Medicine | DX: Z11.3 Encounter for screening for infections with a predominantly sexual mode of transmission (principal) ==